=== PATIENT | male | born 1940 | race Caucasian/White ===

== ENCOUNTER 2022-04-06 08:25 | Outpatient (CLI) | payer OTHER, SELFPAY ==
--- NOTE | 2022-04-06 08:39 | MR_ITS ---
WS: [id number] MRI HEAD WITH CONTRAST WITH ATTENTION TO THE INTERNAL AUDITORY CANALS TECHNIQUE: Sagittal T1, T2 axial, T2 axial flair, axial susceptibility weighted imaging, axial diffus ion weighted images, and coronal T2 images were obtained. Pre and post T1 axial and post T1 coronal i mages. ADC and FSPGR images. Post gadolinium images with attention to the internal auditory canals. A xial fiesta imaging. CLINICAL INFORMATION: UNSPECIFIED SENSORINEURAL HEARING LOSS COMPARISON: None. FINDINGS: No evidence restricted diffusion to suggest acute ischemia. Ventricular system and basal cisterns are patent. Mild small vessel changes. Moderate parenchymal volume loss worse in the frontal lobes. 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 Small chronic cortical infarct parasagittal LEFT occipital lobe with hemosiderin. Multiple tiny chronic lacunar infarcts in the cerebellum bilaterally. Normal vascular flow voids at t he skull base. No extra axial fluid collections. No evidence of mass or mass effect. Mild mucosal thi ckening ethmoid air cells. Mastoid air cells well aerated. No hemosiderin on susceptibly weighted images. Normal optic chiasm and pituitary infundibulum. Cavern ous sinuses and Meckel's cave are normal in appearance. Mild to moderate symmetric atrophy temporal l obes and hippocampal formations. Mild mucosal thickening ethmoid air. Mastoid air cells are well aera morena. Mild mucosal thickening LEFT sphenoid sinus. Proximal 7th and 8th cranial nerves are normal in appearance. Normal trigeminal nerve root entry zone s. Normal cavernous sinus and Meckel's cave. No evidence of enhancing IAC or CP angle mass. Normal trigeminal nerve root entry zones. Normal optic chiasm and pituitary infundibulum. No abnormal intracranial enhancement. Normal dural venous sinuses . MR/MR iac's wo/w con* [id number] IMPRESSION: 1. No evidence of restricted diffusion to suggest acute ischemia. 2. No evidence of enhancing IAC or CP angle mass. Normal trigeminal nerve root entry zones. 3. Mastoid air cells are well aerated. Mild mucosal thickening ethmoid air shay ls and LEFT sphenoid sinus. 4. Mild small vessel changes with moderate parenchymal volume loss worse in th e frontal lobes. 5. 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 6. Multiple tiny chronic lacunar infarcts in the cerebellum bilaterally. 7. No hemosiderin on susceptibly weighted images.
[2022-04-06] MEDS: gadobenate dimeglumine 20 mL vial IV (10:08)
[2022-04-06 10:09] LABS: Blood Urea Nitrogen 15 mg/dL (8-23)
== END 2022-04-06 08:26 | disposition home or self-care (01) ==
LOC: RAD 08:26
PROVIDERS: Visit Provider Specialist
DX: H90.5 Unspecified sensorineural hearing loss (principal); H90.8 Mixed conductive and sensorineural hearing loss, unspecified; I63.81 Other cerebral infarction due to occlusion or stenosis of small artery
CPT/HCPCS: 70553; 82565; 84520